=== PATIENT | male | born 1965 | race Caucasian/White ===

== ENCOUNTER 2018-01-05 16:50 | Emergency (ER) | payer MEDICAID ==
[~2018-01-05] VITALS: Ht 190.5 cm; Wt 113.0 kg
[2018-01-05] MEDS ORDERED: HYDROcodone/acetaminophen 10/325mg tab PO ONE (20:10)
[2018-01-05 20:12] VITALS: BP 153/103
[2018-01-05] MEDS ORDERED: HYDR-3965 PO (20:36)
== END 2018-01-05 20:58 | disposition home or self-care (01) ==
LOC: ER 16:50
DX: S42.002A Fracture of unspecified part of left clavicle, initial encounter for closed fracture (principal); S80.211A Abrasion, right knee, initial encounter; M25.562 Pain in left knee; Z79.899 Other long term (current) drug therapy; X58.XXXA Exposure to other specified factors, initial encounter; Y93.89 Activity, other specified; Y92.89 Other specified places as the place of occurrence of the external cause; Y99.8 Other external cause status
CPT/HCPCS: 29105; 73030; 73564; 99284; A4565